=== PATIENT | female | born 1955 | race American Indian/Alaskan Native ===

== ENCOUNTER 2021-12-07 17:16 | Emergency (ER) | payer MEDICARE, OTHER ==
[2021-12-07] MEDS ORDERED: SODIUM CHLORIDE 0.9% 1000 ML 1,000 ML IV ONE (18:00)
--- NOTE | 2021-12-07 18:08 | Emergency Department Report ---
HPI - General Chief Complaint: Hypoglycemia Time Seen by Provider: 12/07/21 17:43 - HPI HPI: Room 4 The patient is a 66-year-old female present with chief complaint of hyperglycemia. The patient reported history of diabetes and has an insulin pump. Patient reportedly did not eat anything today and while out at a store she began to "feel bad." Patient states that symptoms include head spinning feeling near syncopal and having a dry mouth and diaphoresis. Patient's monitor noted the patient was hypoglycemic with a glucose of 53. Staff at the store gave the patient once use and peppermints and upon EMS arrival the patient's glucose was 243. The patient began improving with EMS and now complains of just generally feeling weak. Patient has a history of colovesicular fistula and is on home antibiotics via PICC line. Patient admits to dysuria for the past 2 years ED Past Medical Hx - Past Medical History Hx Diabetes: Yes Hx Pulmonary Embolism: Yes Hx Renal Disease: Yes (h/o renal failure-now resolved) Hx Seizures: Yes Hx Psychiatric Treatment: (anxiety) Hx COPD: Yes Additional medical history: insulin pump-on pt but not functioning. cad with stent. Crohn's disease - Surgical History Additional Surgical History: colostomy bag - Family History Family history: no significant - Social History Smoking Status: Never Smoker Substance Use Type: None - Medications Home Medications: Home Medications Medication Instructions Recorded Confirmed Last Taken Type Ondansetron [Zofran ODT TAB] 8 mg PO Q8HR 09/08/17 09/08/17 2 Days Ago History ~09/06/17 Rosuvastatin (Nf) [Crestor] 10 mg PO QDAY 09/08/17 09/08/17 2 Days Ago History ~09/06/17 Topiramate [Topamax] 50 mg PO QDAY 09/08/17 09/08/17 2 Days Ago History ~09/06/17 Acetaminophen [Acetaminophen TAB] 650 mg PO Q6H PRN #30 tablet 09/10/17 Unknown Rx Albuterol Mdi (or & Nicu Only) 2 puff IH Q6H PRN #1 unit 09/10/17 09/08/17 Unknown Rx [ProAir HFA Inhaler] AtorvaSTATin [Lipitor] 40 mg PO QHS #30 tablet 09/10/17 Unknown Rx Cyclobenzaprine [Flexeril 10 MG 10 mg PO TID PRN #30 tab 09/10/17 09/08/17 2 Days Ago Rx TAB] ~09/06/17 Ferrous Sulfate [Iron 325 MG] 325 mg PO QDAY #30 tab 09/10/17 09/08/17 2 Days Ago Rx ~09/06/17 Fluticasone/Salmeterol (Nf) 250 mcg INHALATION BID #1 unit 09/10/17 09/08/17 2 Days Ago Rx [Advair 250-50 Diskus (Nf)] ~09/06/17 Gabapentin [Neurontin] 100 mg PO HS PRN #30 tab 09/10/17 09/08/17 2 Days Ago Rx ~09/06/17 HYDROcodone/APAP 5-325 [[place] 1 each PO Q4H PRN #10 tablet 09/10/17 Unknown Rx 5-325 mg TAB] Insulin Glargine [Lantus VIAL] 15 units SUB-Q QHS #100 units 09/10/17 Unknown Rx Ipratropium/Albuterol Sulfate 1 ampul IH TIDRT PRN 30 Days #30 09/10/17 Unknown Rx [DUONEB *Not for PRN Use*] ampul.neb Labetalol HCl 300 mg PO BID #60 tab 09/10/17 09/08/17 2 Days Ago Rx ~09/06/17 Lispro Insulin [HumaLOG] 1 dose SUB-Q ACHS PRN #100 units 09/10/17 Unknown Rx Memantine HCl [Namenda] 10 mg PO BID #60 tab 09/10/17 09/08/17 1 Day Ago Rx ~09/07/17 Mirtazapine [Remeron] 30 mg PO HS #30 tablet 09/10/17 Unknown Rx OLANZapine [Zyprexa] 15 mg PO HS #30 tablet 09/10/17 Unknown Rx Oxybutynin Chloride [Oxybutynin 5 mg PO QDAY #30 tab 09/10/17 09/08/17 2 Days Ago Rx Chloride ER] ~09/06/17 PANTOPRAZOLE SODIUM (nf) [Protonix 40 mg PO BID #60 packet 09/10/17 Unknown Rx GRANULES] Rivaroxaban [Xarelto] 20 mg PO QDAY #30 tablet 09/10/17 Unknown Rx hydrOXYzine PAMOATE [Vistaril] 25 mg PO BID #60 capsule 09/10/17 Unknown Rx medroxyPROGESTERone ACETATE 10 mg PO QDAY #30 09/10/17 09/08/17 2 Days Ago Rx [Provera] ~09/06/17 megestroL [Megestrol] 200 mg PO BID #60 09/10/17 09/08/17 2 Days Ago Rx ~09/06/17 methylPREDNISolone [Medrol Dose 1 dose PO DAILY #1 pack 09/10/17 Unknown Rx Ruben] Fluconazole (Nf) [Diflucan TAB] 150 mg PO ONCE #1 tablet 12/07/21 Unknown Rx ED Review of Systems ROS: Stated complaint: DIABETES Other details as noted in HPI Constitutional: diaphoresis, weakness Eyes: denies: eye pain ENT: denies: throat pain Respiratory: no symptoms reported Cardiovascular: denies: chest pain Endocrine: no symptoms reported Gastrointestinal: diarrhea Genitourinary: dysuria, hematuria Musculoskeletal: back pain Neurological: denies: headache Physical Exam - Physical Exam Vital Signs: Vital Signs 12/07/21 17:20 Pulse Rate 115 H Respiratory 16 Rate Blood Pressure 158/85 [Left] O2 Sat by Pulse 98 Oximetry Physical Exam: GENERAL: The patient is well-developed well-nourished female lying on stretcher not appearing to be in acute distress. [] HEENT: Normocephalic. Atraumatic. Extraocular motions are intact. Patient has moist mucous membranes. NECK: Supple. Trachea midline CHEST/LUNGS: Clear to auscultation. There is no respiratory distress noted. HEART/CARDIOVASCULAR: Regular. There is no tachycardia. There is no gallop rub or murmur. ABDOMEN: Abdomen is soft, nontender. Patient has normal bowel sounds. There is no abdominal distention. SKIN: There is no rash. There is no edema. There is no diaphoresis. NEURO: The patient is awake, alert, and oriented. The patient is cooperative. The patient has no focal neurologic deficits. The patient has normal speech. GCS 15 MUSCULOSKELETAL: There is no evidence of acute injury. ED Course Vital Signs 12/07/21 17:20 Pulse Rate 115 H Respiratory 16 Rate Blood Pressure 158/85 [Left] O2 Sat by Pulse 98 Oximetry ED Medical Decision Making - Lab Data Result diagrams: 12/07/21 20:33 12/07/21 20:33 Laboratory Tests 12/07/21 12/07/21 12/07/21 20:33 20:33 20:33 WBC 6.4 RBC 3.60 L Hgb 10.1 Hct 32.3 MCV 90 MCH 28 MCHC 31 RDW 19.6 H Plt Count 234 Lymph % (Auto) 30.1 [place] % (Auto) 10.2 H Eos % (Auto) 1.8 Baso % (Auto) 0.7 Lymph # (Auto) 1.9 [place] # (Auto) 0.7 Eos # (Auto) 0.1 Baso # (Auto) 0.0 Seg Neutrophils % 57.2 Seg Neutrophils # 3.7 Sodium 138 Potassium 4.9 Chloride 104.1 Carbon Dioxide 24 Anion Gap 15 BUN 47 H Creatinine 1.7 H Estimated GFR 36 BUN/Creatinine Ratio 28 Glucose 123 H Calcium 8.9 Magnesium 1.90 Total Creatine Kinase 324 H CK-MB (CK-2) 3.8 CK-MB (CK-2) Rel Index 1.1 Troponin T < 0.010 TSH 1.250 Free T4 1.02 Urine Color Urine Turbidity Specific [place] (Man) Ur Protein (Man) Ur Ketones (Man) Ur Nitrite (Man) Leukocyte Esterase (Man) Urine WBC (Auto) Urine RBC (Auto) U Epithel Cells (Auto) Urine Bacteria (Auto) Urine RBC (Manual) Urine Mucus Urine Yeast (Budding) 12/07/21 22:10 WBC RBC Hgb Hct MCV MCH MCHC RDW Plt Count Lymph % (Auto) [place] % (Auto) Eos % (Auto) Baso % (Auto) Lymph # (Auto) [place] # (Auto) Eos # (Auto) Baso # (Auto) Seg Neutrophils % Seg Neutrophils # Sodium Potassium Chloride Carbon Dioxide Anion Gap BUN Creatinine Estimated GFR BUN/Creatinine Ratio Glucose Calcium Magnesium Total Creatine Kinase CK-MB (CK-2) CK-MB (CK-2) Rel Index Troponin T TSH Free T4 Urine Color Yellow Urine Turbidity Clear Specific [place] (Man) 1.015 Ur Protein (Man) 1+ Ur Ketones (Man) Negative Ur Nitrite (Man) Negative Leukocyte Esterase (Man) Negative Urine WBC (Auto) 14.0 H Urine RBC (Auto) 4.0 U Epithel Cells (Auto) 1.0 Urine Bacteria (Auto) 1+ Urine RBC (Manual) Negative Urine Mucus Few Urine Yeast (Budding) Few - Differential Diagnosis Hypoglycemia Critical care attestation.: If time is entered above; I have spent that time in minutes in the direct care of this critically ill patient, excluding procedure time. ED Disposition Clinical Impression: Hypoglycemia Disposition: 01 HOME / SELF CARE / HOMELESS Is pt being admited?: No Does the pt Need Aspirin: No Condition: Stable Instructions: Hypoglycemia, [id number] Additional Instructions: Return to the emergency department should you develop worsening symptoms, inability to tolerate food or liquids, high fever or any other concerns Prescriptions: Fluconazole (Nf) [Diflucan TAB] 150 mg PO ONCE #1 tablet Referrals: GUERDA BOWLING MD [Primary Care Provider] - 3-5 Days Time of Disposition: 23:08
[2021-12-07 21:17] LABS: Basophils % (Auto) 0.7 % (0.0-1.8); Eosinophils # (Auto) 0.1 K/mm3 (0.0-0.4); Eosinophils % (Auto) 1.8 % (0.0-4.3); Hematocrit 32.3 % (30.3-42.9); Hemoglobin 10.1 gm/dl (10.1-14.3); Lymphocytes # (Auto) 1.9 K/mm3 (1.2-5.4); Lymphocytes % (Auto) 30.1 % (13.4-35.0); Mean Corpuscular HGB Conc 31 % (30-34); Mean Corpuscular Volume 90 fl (79-97); Monocytes # (Auto) 0.7 K/mm3 (0.0-0.8); Monocytes % (Auto) 10.2 % (0.0-7.3); Platelet Count 234 K/mm3 (140-440); Red Cell Distribution Width 19.6 % (13.2-15.2)
[2021-12-07 21:22] LABS: BUN/Creatinine Ratio 28; Blood Urea Nitrogen 47 mg/dL (7-17); Calcium 8.9 mg/dL (8.4-10.2); Creatine Kinase MB 3.8 ng/mL (0.0-4.0); Hemolysis Index 9
[2021-12-07 21:33] LABS: Free T4 (Free Thyroxine) 1.02 ng/dL (0.76-1.46)
[2021-12-07] MEDS ORDERED: ONDANSETRON 4 MG/2 ML INJ IV ONE (22:10)
[2021-12-07] MEDS ORDERED: fentaNYL 100 MCG/2 ML INJ IV ONE (22:10)
[2021-12-07 22:35] LABS: Color,Urine Yellow (Yellow)
[2021-12-07 22:50] LABS: Bacteria,Urine 1+ /HPF (Negative); Mucus,Urine FEW /HPF
[2021-12-08] MEDS ORDERED: DEXTROSE 50% IN WATER (25GM) 50 ML SYRINGE IV ONE (00:42)
[2021-12-08 01:09] VITALS: BP 145/70
== END 2021-12-08 01:16 | disposition home or self-care (01) ==
LOC: ED 17:16
DX: E16.2 Hypoglycemia, unspecified (principal); F41.9 Anxiety disorder, unspecified
CPT/HCPCS: 36415; 80048; 81001; 82550; 82553; 82962; 83735; 84439; 84443; 84484; 85025; 87086; 96361; 96374; 96375; 99284; J2405; J3010; J3490; J7030